=== PATIENT | female | born 1990 | race Caucasian/White ===

== ENCOUNTER 2019-12-02 07:14 | Inpatient (IN) | payer OTHER ==
[~2019-12-02] VITALS: Ht 172.7 cm; Wt 73.9 kg
[2019-12-02] MEDS ORDERED: PRENATABS RX T1 EACH PO (08:36)
[2019-12-02] MEDS ORDERED: KEFLEX500 MG PO (08:41)
== END 2019-12-04 16:29 | disposition home or self-care (01) | DRG 807 ==
LOC: LDR 07:14 → OB/GYN 07:14 → LDR 15:25 → OB/GYN 18:10
PROVIDERS: ADMIT Obstetrics & Gynecology
PROC: 10E0XZZ Delivery of Products of Conception, External Approach (ICD-10-PCS; principal; 2019-12-02)
PROC: 10907ZC Drainage of Amniotic Fluid, Therapeutic from Products of Conception, Via Natural or Artificial Opening (ICD-10-PCS; 2019-12-02)
PROC: 0W8NXZZ Division of Female Perineum, External Approach (ICD-10-PCS; 2019-12-02)
PROC: 3E033VJ Introduction of Other Hormone into Peripheral Vein, Percutaneous Approach (ICD-10-PCS; 2019-12-02)
PROC: 4A1HXCZ Monitoring of Products of Conception, Cardiac Rate, External Approach (ICD-10-PCS; 2019-12-02)
DX: O80 Encounter for full-term uncomplicated delivery (principal); Z37.0 Single live birth; Z3A.39 39 weeks gestation of pregnancy